=== PATIENT | male | born 1965 | race African-American/Black ===

== ENCOUNTER 2019-02-18 14:57 | Inpatient (IN) | payer OTHER ==
[2019-02-18 18:26] VITALS: BMI 18.7
--- NOTE | 2019-02-18 19:37 | HP ---
CIWA Score Nausea/Vomitin-Mild Nausea/No Vomiting Muscle Tremors: 3 Anxiety: 2 Agitation: 2 Paroxysmal Sweats: No Perspiration Orientation: 0-Oriented Tacttile Disturbances: 0-None Auditory Disturbances: 0-None Visual Disturbances: 7-Constant Hallucination Headache: 1-Very Mild CIWA-Ar Total Score: 16 - Admission Criteria OASAS Guidelines: Admission for Medically Managed Detox: Requires at least one of the followin. CIWA greater than 12 2. Seizures within the past 24 hours 3. Delirium tremens within the past 24 hours 4. Hallucinations within the past 24 hours 5. Acute intervention needed for co occurring medical disorder 6. Acute intervention needed for co occurring psychiatric disorder 7. Severe withdrawal that cannot be handled at a lower level of care (continued vomiting, continued diarrhea, abnormal vital signs) requiring intravenous medication and/or fluids 8. Admission ROS [facility] Chief Complaint: alcohol detox Allergies/Adverse Reactions: Allergies Allergy/AdvReac Type Severity Reaction Status Date / Time No Known Allergies Allergy Verified 02/18/19 18:17 History of Present Illness: 53 yo with a long h/o of drinking liquor. Never been to detox before. Went to [facility] for dizziness- and was referred here for detox. Lives alone. alcohol- says he starts drinking in the morning, 2 pints vodka, no h/o seizures/ DT's Cigarettes- a pack/2 days [id number] Medical problems- HTN DUR- no meds - Ebola screening Have you traveled outside of the country in the last 21 days: No Have you had contact with anyone from an Ebola affected area: No - Review of Systems Constitutional: No Symptoms Reported EENT: reports: No Symptoms Reported Respiratory: reports: No Symptoms reported Cardiac: reports: No Symptoms Reported : reports: No Symptoms Reported Musculoskeletal: reports: No Symptoms Reported Integumentary: reports: No Symptoms Reported Neuro: reports: No Symptoms reported Endocrine: reports: No Symptoms Reported Hematology: reports: No Symptoms Reported Psychiatric: reports: No Sypmtoms Reported Other Systems: Reviewed and Negative Patient History - Patient Medical History Hx Hypertension: Yes - Smoking Cessation Smoking history: Current every day smoker Have you smoked in the past 12 months: Yes Aproximately how many cigarettes per day: 10 Hx Chewing Tobacco Use: No Initiated information on smoking cessation: Yes 'Breaking Loose' booklet given: 02/18/19 - Substances abused Alcohol Substance route: Oral Frequency: Daily Amount used: 3 PINTS OF VODKA Age of first use: 16 Date of last use: 02/18/19 Admission Physical Exam BHS - Vital Signs Vital Signs: Vital Signs - 24 hr 02/18/19 18:23 Temperature 99.8 F H Pulse Rate 91 H Respiratory 18 Rate Blood Pressure 137/74 - Physical General Appearance: Yes: Mild Distress, Cachetic, Thin HEENTM: Yes: Within Normal Limits, Hearing grossly Normal, [place], Other ( injected conjuctiva) Neck: Yes: Within Normal Limits Cardiology: Yes: Within Normal Limits, Regular Rate Abdominal: Yes: Within Normal Limits, Normal Bowel Sounds Musculoskeletal: Yes: Within Normal Limits, Gait Steady Extremities: Yes: Within Normal Limits, Normal Capillary Refill Neurological: Yes: Within Normal Limits Integumentary: Yes: Within Normal Limits Lymphatic: Yes: Within Normal Limits - Diagnostic (1) Alcohol use disorder Current Visit: Yes Status: Acute (2) HTN (hypertension) Current Visit: Yes Status: Acute Breathalyzer - Breathalyzer Breathalyzer: 0.157 Urine Drug Screen - Test Device Lot number: [id number] Expiration date: 10/29/20 - Control Is test valid?: Yes - Results Drug screen NEGATIVE: No Urine drug screen results: BZO-Benzodiazepines Inpatient Rehab Admission - Rehab Decision to Admit Inpatient rehab admission?: No
[2019-02-18] MEDS ORDERED: MAGNESIUM CITRATE 300 ML BOTTLE PO PRN (19:42)
[2019-02-18] MEDS ORDERED: MENTHOL/PHENOL 1 EACH UD MM PRN (19:42)
[2019-02-18] MEDS ORDERED: MELATONIN 5 MG TABLETS PO PRN (19:42)
[2019-02-18] MEDS ORDERED: MAG HYDROX/AL HYDROX/SIMETH 30 ML UNIT-DOSE CUP PO PRN (19:42)
[2019-02-18] MEDS ORDERED: hydrOXYzine PAMOATE 25 MG CAPSULE (FP) PO PRN (19:42)
[2019-02-18] MEDS ORDERED: LORazepam 1 MG TABLET PO PRN (19:42)
[2019-02-18] MEDS ORDERED: BISMUTH SUBSALICYLATE 524 MG/30 ML UD PO PRN (19:42)
[2019-02-18] MEDS ORDERED: MAGNESIUM HYDROX 2400MG/30ML ORAL SUSPENSION 30 ML CUP PO PRN (19:42)
[2019-02-18] MEDS ORDERED: IBUPROFEN 400 MG TABLET (FP) PO PRN (19:42)
[2019-02-18] MEDS ORDERED: METHOCARBAMOL 500 MG TABLET PO PRN (19:42)
[2019-02-18] MEDS ORDERED: NICOTINE POLACRILEX 2 MG GUM BUC PRN (19:42)
[2019-02-18] MEDS ORDERED: ACETAMINOPHEN 325 MG TABLET (FP) PO PRN ×2 (19:42)
[2019-02-18] MEDS: THIAMINE HCL 100 MG TABLET (FP) PO SCH (22:07)
[2019-02-18] MEDS: LORazepam 2 MG TABLET PO SCH (22:07)
[2019-02-19] MEDS: LORazepam 2 MG TABLET PO SCH ×4 (06:09→21:59)
[2019-02-19 10:17] LABS: HEMATOCRIT 32.1 % (35.4-49); HEMOGLOBIN 10.4 GM/dL (11.7-16.9); MCH 25.2 pg (25.7-33.7); MCHC 32.5 g/dl (32.0-35.9); MEAN CELL VOLUME 77.7 fl (80-96); MEAN PLT VOLUME 9.3 fl (7.5-11.1); PLATELET COUNT 120 K/MM3 (134-434); RBC 4.14 M/mm3 (4.00-5.60); RDW 20.7 % (11.9-15.9); WHITE BLOOD COUNT 4.9 K/mm3 (4.0-10.0)
[2019-02-19 10:26] LABS: ALBUMIN 3.4 g/dl (3.4-5.0); BILIRUBIN,TOTAL 0.7 mg/dL (0.2-1); BLOOD UREA NITROGEN 15.2 mg/dL (7-18); CALCIUM 9.3 mg/dL (8.5-10.1); CREATININE 0.9 mg/dL (0.55-1.3); TOT PROT 6.1 g/dl (6.4-8.2)
[2019-02-19] MEDS: NICOTINE 14 MG/24 HOURS TOPICAL PATCH TD SCH (10:30)
[2019-02-19] MEDS: ASPIRIN 81 MG CHEWABLE TABLETS PO SCH (10:30)
[2019-02-19] MEDS: PRENATAL VITAMINS W/ FOLIC ACID TABLET (FP) PO SCH (10:30)
[2019-02-19] MEDS: HYDROCHLOROTHIAZIDE 12.5 MG CAPSULE (FP) PO SCH (10:30)
[2019-02-19] MEDS: amLODIPine BESYLATE 5 MG TABLET (FP) PO SCH (10:30)
--- NOTE | 2019-02-19 12:47 | PN ---
S CIWA - CIWA Score Nausea/Vomitin-Mild Nausea/No Vomiting Muscle Tremors: 3 Anxiety: 2 Agitation: 1-Slight > Activity Paroxysmal Sweats: 2 Orientation: 0-Oriented Tacttile Disturbances: 1-Very Mild Itch/Numbness Auditory Disturbances: 0-None Visual Disturbances: 0-None Headache: 2-Mild CIWA-Ar Total Score: 12 S Progress Note (SOAP) Subjective: 53 years old male admitted on 02/18/19 for alcohol withdrawal sx management treated wtih ativan detox regimen long history of hypertension treated with amlodipine and hctz patient tolerated well Objective: 02/19/19 12:48 Vital Signs Temperature 98.5 F 02/19/19 09:03 Pulse Rate 82 02/19/19 09:03 Respiratory Rate 18 02/19/19 09:03 Blood Pressure 122/78 02/19/19 09:03 O2 Sat by Pulse Oximetry (%) Laboratory Last Values WBC 4.9 K/mm3 (4.0-10.0) 02/19/19 08:15 RBC 4.14 M/mm3 (4.00-5.60) 02/19/19 08:15 Hgb 10.4 GM/dL (11.7-16.9) L 02/19/19 08:15 Hct 32.1 % (35.4-49) L 02/19/19 08:15 MCV 77.7 fl (80-96) L 02/19/19 08:15 MCH 25.2 pg (25.7-33.7) L 02/19/19 08:15 MCHC 32.5 g/dl (32.0-35.9) 02/19/19 08:15 RDW 20.7 % (11.9-15.9) H 02/19/19 08:15 Plt Count 120 K/MM3 (134-434) L 02/19/19 08:15 MPV 9.3 fl (7.5-11.1) 02/19/19 08:15 Sodium 135 mmol/L (136-145) L 02/19/19 08:15 Potassium 3.0 mmol/L (3.5-5.1) L 02/19/19 08:15 Chloride 98 mmol/L (98-107) 02/19/19 08:15 Carbon Dioxide 30 mmol/L (21-32) 02/19/19 08:15 Anion Gap 7 MMOL/L (8-16) L 02/19/19 08:15 BUN 15.2 mg/dL (7-18) 02/19/19 08:15 Creatinine 0.9 mg/dL (0.55-1.3) 02/19/19 08:15 Est GFR (CKD-EPI)AfAm 111.05 02/19/19 08:15 Est GFR (CKD-EPI)NonAf 95.81 02/19/19 08:15 Random Glucose 129 mg/dL (74-106) H 02/19/19 08:15 Calcium 9.3 mg/dL (8.5-10.1) 02/19/19 08:15 Total Bilirubin 0.7 mg/dL (0.2-1) 02/19/19 08:15 AST 213 U/L (15-37) H 02/19/19 08:15 ALT 61 U/L (13-61) 02/19/19 08:15 Alkaline Phosphatase 89 U/L (45-117) 02/19/19 08:15 Total Protein 6.1 g/dl (6.4-8.2) L 02/19/19 08:15 Albumin 3.4 g/dl (3.4-5.0) 02/19/19 08:15 lab noted low K+ ast elevation K+ supplement repeat K+ and ast 02/19/19 12:52 Assessment: 02/19/19 12:53 alcohol withdrawal sx Plan: continue ativan detox regimen
[2019-02-19] MEDS ORDERED: POTASSIUM CHLORIDE ORAL LIQUID 20 MEQ/15 ML PO ONE (14:00)
[2019-02-19] MEDS: THIAMINE HCL 100 MG TABLET (FP) PO SCH (21:56)
[2019-02-19] MEDS: POTASSIUM CHLORIDE TABS 20 MEQ TABLET.ER (FP) PO SCH (21:56)
[2019-02-20] MEDS: LORazepam 1 MG TABLET PO SCH ×4 (05:38→22:16)
[2019-02-20] MEDS: NICOTINE 14 MG/24 HOURS TOPICAL PATCH TD SCH (10:48)
[2019-02-20] MEDS: ASPIRIN 81 MG CHEWABLE TABLETS PO SCH (10:48)
[2019-02-20] MEDS: PRENATAL VITAMINS W/ FOLIC ACID TABLET (FP) PO SCH (10:48)
[2019-02-20] MEDS: POTASSIUM CHLORIDE TABS 20 MEQ TABLET.ER (FP) PO SCH ×2 (10:48→22:15)
[2019-02-20] MEDS: amLODIPine BESYLATE 5 MG TABLET (FP) PO SCH (10:48)
[2019-02-20] MEDS: HYDROCHLOROTHIAZIDE 12.5 MG CAPSULE (FP) PO SCH (10:48)
--- NOTE | 2019-02-20 14:11 | PN ---
S CIWA - CIWA Score Nausea/Vomitin-Mild Nausea/No Vomiting Muscle Tremors: 2 Anxiety: 2 Agitation: 2 Paroxysmal Sweats: 1-Minimal Palms Moist Orientation: 0-Oriented Tacttile Disturbances: 0-None Auditory Disturbances: 0-None Visual Disturbances: 0-None Headache: 0-None Present CIWA-Ar Total Score: 8 BHS Progress Note (SOAP) Subjective: 53 years old male admitted on 02/18/19 for alcohol withdrawal sx management treated with ativan detox regimen feeling better today slept through the night less tremor Objective: 02/20/19 14:10 Vital Signs Temperature 98.8 F 02/20/19 13:13 Pulse Rate 76 02/20/19 13:13 Respiratory Rate 18 02/20/19 13:13 Blood Pressure 114/64 02/20/19 13:13 O2 Sat by Pulse Oximetry (%) Laboratory Last Values WBC 4.9 K/mm3 (4.0-10.0) 02/19/19 08:15 RBC 4.14 M/mm3 (4.00-5.60) 02/19/19 08:15 Hgb 10.4 GM/dL (11.7-16.9) L 02/19/19 08:15 Hct 32.1 % (35.4-49) L 02/19/19 08:15 MCV 77.7 fl (80-96) L 02/19/19 08:15 MCH 25.2 pg (25.7-33.7) L 02/19/19 08:15 MCHC 32.5 g/dl (32.0-35.9) 02/19/19 08:15 RDW 20.7 % (11.9-15.9) H 02/19/19 08:15 Plt Count 120 K/MM3 (134-434) L 02/19/19 08:15 MPV 9.3 fl (7.5-11.1) 02/19/19 08:15 Sodium 135 mmol/L (136-145) L 02/19/19 08:15 Potassium 3.6 mmol/L (3.5-5.1) 02/20/19 08:00 Chloride 98 mmol/L (98-107) 02/19/19 08:15 Carbon Dioxide 30 mmol/L (21-32) 02/19/19 08:15 Anion Gap 7 MMOL/L (8-16) L 02/19/19 08:15 BUN 15.2 mg/dL (7-18) 02/19/19 08:15 Creatinine 0.9 mg/dL (0.55-1.3) 02/19/19 08:15 Est GFR (CKD-EPI)AfAm 111.05 02/19/19 08:15 Est GFR (CKD-EPI)NonAf 95.81 02/19/19 08:15 Random Glucose 129 mg/dL (74-106) H 02/19/19 08:15 Calcium 9.3 mg/dL (8.5-10.1) 02/19/19 08:15 Total Bilirubin 0.7 mg/dL (0.2-1) 02/19/19 08:15 AST 213 U/L (15-37) H 02/19/19 08:15 ALT 61 U/L (13-61) 02/19/19 08:15 Alkaline Phosphatase 89 U/L (45-117) 02/19/19 08:15 Total Protein 6.1 g/dl (6.4-8.2) L 02/19/19 08:15 Albumin 3.4 g/dl (3.4-5.0) 02/19/19 08:15 RPR Titer Nonreactive (NONREACTIVE) 02/19/19 08:15 lab noted Assessment: 02/20/19 14:10 alcohol withdrawal sx Plan: continue ativan detox regimen
[2019-02-20] MEDS: THIAMINE HCL 100 MG TABLET (FP) PO SCH (22:15)
[2019-02-21] MEDS ORDERED: LORazepam 0.5 MG TABLET PO PRN
[2019-02-21] MEDS: LORazepam 0.5 MG TABLET PO SCH ×2 (05:44→10:04)
[2019-02-21 09:19] VITALS: BP 153/99; PULSE 78; TEMP 96.8
--- NOTE | 2019-02-21 09:33 | PN ---
[facility] CIWA - CIWA Score Nausea/Vomitin-No Nausea/No Vomiting Muscle Tremors: 1-None Visible, but [place] Anxiety: 0-No Anxiety, at Ease Agitation: 0-Normal Activity Paroxysmal Sweats: No Perspiration Orientation: 3-Disoriented Date>2 days Tacttile Disturbances: 0-None Auditory Disturbances: 0-None Visual Disturbances: 0-None Headache: 0-None Present CIWA-Ar Total Score: 4 S Progress Note (SOAP) Subjective: alert,no complaint Objective: 02/21/19 09:31 Vital Signs Temperature 96.8 F L 02/21/19 09:18 Pulse Rate 78 02/21/19 09:18 Respiratory Rate 18 02/21/19 09:18 Blood Pressure 153/99 02/21/19 09:18 O2 Sat by Pulse Oximetry (%) Assessment: 02/21/19 09:31 detox completed, Plan: discharge today,[facility]
--- NOTE | 2019-02-21 09:44 | DS ---
[facility] Detox Discharge Summary Admission Date: 02/18/19 Discharge Date: 02/21/19 - History Present History: Alcohol Dependence Additional Comments: discharge in good condition,follow up with [facility] and follow up with Dr Moreira for medicaL problem and elevation of liver enzymes, patient has medications at home Pertinent Past History: hypertension - Physical Exam Results Vital Signs: Vital Signs Temperature 96.8 F L 02/21/19 09:18 Pulse Rate 78 02/21/19 09:18 Respiratory Rate 18 02/21/19 09:18 Blood Pressure 153/99 02/21/19 09:18 O2 Sat by Pulse Oximetry (%) Pertinent Admission Physical Exam Findings: withdrawal signs and symptom Laboratory Last Values WBC 4.9 K/mm3 (4.0-10.0) 02/19/19 08:15 RBC 4.14 M/mm3 (4.00-5.60) 02/19/19 08:15 Hgb 10.4 GM/dL (11.7-16.9) L 02/19/19 08:15 Hct 32.1 % (35.4-49) L 02/19/19 08:15 MCV 77.7 fl (80-96) L 02/19/19 08:15 MCH 25.2 pg (25.7-33.7) L 02/19/19 08:15 MCHC 32.5 g/dl (32.0-35.9) 02/19/19 08:15 RDW 20.7 % (11.9-15.9) H 02/19/19 08:15 Plt Count 120 K/MM3 (134-434) L 02/19/19 08:15 MPV 9.3 fl (7.5-11.1) 02/19/19 08:15 Sodium 135 mmol/L (136-145) L 02/19/19 08:15 Potassium 3.6 mmol/L (3.5-5.1) 02/20/19 08:00 Chloride 98 mmol/L (98-107) 02/19/19 08:15 Carbon Dioxide 30 mmol/L (21-32) 02/19/19 08:15 Anion Gap 7 MMOL/L (8-16) L 02/19/19 08:15 BUN 15.2 mg/dL (7-18) 02/19/19 08:15 Creatinine 0.9 mg/dL (0.55-1.3) 02/19/19 08:15 Est GFR (CKD-EPI)AfAm 111.05 02/19/19 08:15 Est GFR (CKD-EPI)NonAf 95.81 02/19/19 08:15 Random Glucose 129 mg/dL (74-106) H 02/19/19 08:15 Calcium 9.3 mg/dL (8.5-10.1) 02/19/19 08:15 Total Bilirubin 0.7 mg/dL (0.2-1) 02/19/19 08:15 AST 213 U/L (15-37) H 02/19/19 08:15 ALT 61 U/L (13-61) 02/19/19 08:15 Alkaline Phosphatase 89 U/L (45-117) 02/19/19 08:15 Total Protein 6.1 g/dl (6.4-8.2) L 02/19/19 08:15 Albumin 3.4 g/dl (3.4-5.0) 02/19/19 08:15 RPR Titer Nonreactive (NONREACTIVE) 02/19/19 08:15 - Treatment Hospital Course: Detox Protocol Followed, Detoxed Safely, Responded well, Discharged Condition Good Patient has Accepted a Rehab Referral to: declined - Medication Discharge Medications: Ambulatory Orders Amlodipine Besylate 5 mg PO DAILY 02/18/19 Aspirin 81 mg PO DAILY 02/18/19 Famotidine 20 mg PO BID 02/18/19 Hydrochlorothiazide [Hctz -] 12.5 mg PO DAILY 02/18/19 Thiamine HCl [B-1] 100 mg PO DAILY 02/18/19 - Diagnosis (1) Alcohol dependence with uncomplicated withdrawal Status: Acute (2) HTN (hypertension) Status: Acute - AMA Did Patient Leave Against Medical Advice: No
[2019-02-21] MEDS: amLODIPine BESYLATE 5 MG TABLET (FP) PO SCH (10:03)
[2019-02-21] MEDS: HYDROCHLOROTHIAZIDE 12.5 MG CAPSULE (FP) PO SCH (10:04)
[2019-02-21] MEDS: POTASSIUM CHLORIDE TABS 20 MEQ TABLET.ER (FP) PO SCH (10:04)
[2019-02-21] MEDS: ASPIRIN 81 MG CHEWABLE TABLETS PO SCH (10:04)
[2019-02-21] MEDS: PRENATAL VITAMINS W/ FOLIC ACID TABLET (FP) PO SCH (10:04)
[2019-02-21] MEDS: NICOTINE 14 MG/24 HOURS TOPICAL PATCH TD SCH (10:07)
[2019-02-22] MEDS ORDERED: LORazepam 0.5 MG TABLET PO ONE (05:00)
== END 2019-02-21 10:05 | disposition home or self-care (01) | DRG 775 ==
LOC: YASAS 14:57 → Y3N 19:56
PROVIDERS: ADMIT Allergy & Immunology; ATTEND Allergy & Immunology
PROC: HZ2ZZZZ Detoxification Services for Substance Abuse Treatment (ICD-10-PCS; principal; 2019-02-18)
DX: F10.230 Alcohol dependence with withdrawal, uncomplicated (principal); F17.210 Nicotine dependence, cigarettes, uncomplicated; E87.6 Hypokalemia; I10 Essential (primary) hypertension
CPT/HCPCS: 36415; 80053; 84132; 84450; 85027; 86593